=== PATIENT | male | born 1975 | race Caucasian/White ===

== ENCOUNTER 2017-11-18 07:06 | Emergency (ER) | payer SELFPAY ==
[~2017-11-18] VITALS: Ht 185.4 cm; Wt 147.4 kg
--- OUTSIDE RECORDS SUMMARY | 2017-11-18 07:12 | XMS REPORT ---
Author Author JOAO HENRY [facility] Address [address] [place] [address] Care Team Providers Care Hand Hide Stretcher Name Role Phone JOAO HENRY Unavailable PROBLEMS Type Condition ICD9-CM Code [id number] Code Onset Dates Condition Status SNOMED Code Problem Allergic rhinitis, unspecified J30.9 Active 99009850 Problem Hypertension I10 Active 72001375 Problem Hyperlipidemia, unspecified hyperlipidemia type E78.5 Active 72484945 Problem Varicose veins I86.8 Active 860073096 Problem Plantar fasciitis M72.2 Active 441925778 ALLERGIES No Known Allergies SOCIAL HISTORY Never Assessed PLAN OF CARE Activity Details Follow Up 6 Months Reason:BP VITAL SIGNS Height 73 in 2017-02-06 Weight 297.1 lbs 2017-02-06 Temperature 98.4 degrees Fahrenheit 2017-02-06 Heart Rate 84 bpm 2017-02-06 Respiratory Rate 18 2017-02-06 BMI 39.19 kg/m2 2017-02-06 Blood pressure systolic 118 mmHg 2017-02-06 Blood pressure diastolic 84 mmHg 2017-02-06 MEDICATIONS Medication Instructions Dosage Frequency Start Date End Date Duration Status Loratadine 10 MG Orally Once a day 1 tablet 24h Active Fluticasone Propionate 50 MCG/ACT Nasally Twice a day 1 spray in each nostril 12h Nov, 30 day(s) Active Multivitamin Adult - Active Baby Aspirin 81 MG Orally Once a day 1 tablet 24h Oct, Active Guaifenesin 400 mg Orally 2 times a day 1 tablet as needed 12h Jan, Active Glucosamine 500 MG Orally Once a day 1 capsule with a meal 24h Active Accupril 20 MG Orally Once a day 1 tablet 24h Jul, 30 days Active RESULTS No Results PROCEDURES Procedure Date Ordered Result Body Site COMPREHEN METABOLIC PANEL February 06, 2017 LIPID PANEL February 06, 2017 VENIPUNCT, ROUTINE* February 06, 2017 IMMUNIZATIONS No Known Immunizations MEDICAL (GENERAL) HISTORY Type Description Date Medical History hypertension Medical History hyperlipidemia Medical History asthma Surgical History wisdom teeth at age 19yrs
--- OUTSIDE RECORDS SUMMARY | 2017-11-18 07:12 | XMS REPORT ---
Author JOAO Osborne Organization [employer] Address Unknown Phone Unavailable Care Team Providers Care Art Director Name Role Phone JOAO HENRY CP Unavailable Allergies No Known Allergies Problems Problem Type Condition Code Onset Dates Condition Status Problem Hyperlipidemia, unspecified hyperlipidemia type E78.5 Active Problem Varicose veins I86.8 Active Problem Hypertension I10 Active Problem Plantar fasciitis M72.2 Active Medications No Known Medications Results No Known Results Summary Purpose [employer] Submission
--- OUTSIDE RECORDS SUMMARY | 2017-11-18 07:12 | XMS REPORT ---
Author Author JOAO HENRY Organization [employer] Address Unknown Phone Unavailable Care Team Providers Care Health And Safety Representative Name Role Phone JOAO HENRY CP Unavailable Allergies No Known Allergies Problems Problem Type Condition Code Onset Dates Condition Status Problem Hyperlipidemia, unspecified hyperlipidemia type E78.5 Active Problem Varicose veins I86.8 Active Problem Hypertension I10 Active Problem Plantar fasciitis M72.2 Active Assessment Hyperlipidemia, unspecified hyperlipidemia type E78.5 Active Medications No Known Medications Results No Known Results Summary Purpose [employer] Submission
--- OUTSIDE RECORDS SUMMARY | 2017-11-18 07:12 | XMS REPORT ---
Author Author JOAO HENRY Organization [employer] Address Unknown Phone Unavailable Care Team Providers Care Saw Offbearer Name Role Phone JOAO HENRY CP Unavailable Allergies No Known Allergies Problems Problem Type Condition Code Onset Dates Condition Status Problem Other and unspecified hyperlipidemia 272.4 Active Problem Essential hypertension, benign 401.1 Active Problem Allergic rhinitis, cause unspecified 477.9 Active Medications Medication Code System Code Instructions Start Date End Date Status Dosage Accupril [facility] [address]-48 20 MG Once a day PT NEEDS AN APPT FOR FURTHER REFILLS Jul 29, 2014 1 tablet by Oral route 1 time per day Results No Known Results Summary Purpose [employer] Submission
--- OUTSIDE RECORDS SUMMARY | 2017-11-18 07:12 | XMS REPORT ---
Author Author SUHA MARR[facility]QUIN [facility] Address [address] [place] [address] Care Team Providers Care Senior Qa Engineer Name Role Phone SUHA MARROQUIN Unavailable PROBLEMS Type Condition ICD9-CM Code [id number] Code Onset Dates Condition Status SNOMED Code Problem Allergic rhinitis, unspecified J30.9 Active 38728572 Problem Hypertension I10 Active 85837740 Problem Hyperlipidemia, unspecified hyperlipidemia type E78.5 Active 46103272 Problem Varicose veins I86.8 Active 490565896 Problem Plantar fasciitis M72.2 Active 603088536 ALLERGIES No Known Allergies SOCIAL HISTORY Never Assessed PLAN OF CARE Activity Details Follow Up prn Reason: VITAL SIGNS Height 73 in 2016-11-30 Weight 292.6 lbs 2016-11-30 Temperature 97.8 degrees Fahrenheit 2016-11-30 Heart Rate 68 bpm 2016-11-30 Respiratory Rate 20 2016-11-30 BMI 38.60 kg/m2 2016-11-30 Blood pressure systolic 126 mmHg 2016-11-30 Blood pressure diastolic 80 mmHg 2016-11-30 MEDICATIONS Medication Instructions Dosage Frequency Start Date End Date Duration Status Loratadine 10 MG Orally Once a day 1 tablet 24h Active Benzonatate 100 MG Orally Three times a day 1 capsule as needed 8h Nov, Nov, 5 days Active Accupril 20 MG 1 tablet by Oral route 1 time per day 24h Jul, Active Baby Aspirin 81 MG Orally Once a day 1 tablet 24h Oct, Active Fluticasone Propionate 50 MCG/ACT Nasally Twice a day 1 spray in each nostril 12h Nov, 30 day(s) Active Augmentin 875-125 MG Orally every 12 hrs 1 tablet 12h Nov,Nov 10 day(s) Active RESULTS No Results PROCEDURES Procedure Date Ordered Result Body Site DEPO MEDROL 80 MG/ML Nov 30, 2016 THER/PROPH/DIAG INJ, SC/IM Nov 30, 2016 DEXAMETHASONE 4MG/ML (PER 1 MG) Nov 30, 2016 IMMUNIZATIONS Vaccine Route Administration Date Status DEXAMETHASONE 4MG/ML (PER 1 MG) IM Intramuscular Nov 30, 2016 Administered DEPO MEDROL 80 MG/ML IM Intramuscular Nov 30, 2016 Administered MEDICAL (GENERAL) HISTORY Type Description Date Medical History hypertension Medical History hyperlipidemia Medical History asthma Surgical History wisdom teeth at age 19yrs
--- OUTSIDE RECORDS SUMMARY | 2017-11-18 07:13 | XMS REPORT | Continuity of Care Document ---
Author Author [facility] Address Unknown Phone Unavailable Allergies Active Description Code Type Severity Reaction Onset Reported/Identified Relationship to Patient Clinical Status Yes No Known Drug Allergies [id number] Drug Allergy Mild N/A 07/11/2009 Medications There is no data. Problems Date Dx Coded Attending Type Code Diagnosis Diagnosed By 12/27/2009 CARL GARAY JOAO S 461.1 Acute Frontal Sinusitis 12/27/2009 CARL WELL REACTIVATOR OPERATOR JOAO S 786.2 Cough 12/27/2009 461.1 Acute Frontal Sinusitis 12/27/2009 786.2 Cough 12/27/2009 CARL WELL REACTIVATOR OPERATOR, JOAO S 461.1 Acute Frontal Sinusitis 12/27/2009 CARL WELL REACTIVATOR OPERATOR, JOAO S 786.2 Cough 12/27/2009 WHITE DDS, KERRI D 461.1 Acute Frontal Sinusitis 12/27/2009 WHITE DDS, KERRI D 786.2 Cough 12/27/2009 CARL WELL REACTIVATOR OPERATOR, JOAO S 461.1 Acute Frontal Sinusitis 12/27/2009 CARL WELL REACTIVATOR OPERATOR, JOAO S 786.2 Cough 12/27/2009 MIGUEL DIAZ MD 461.1 Acute Frontal Sinusitis 12/27/2009 MIGUEL DIAZ MD 786.2 Cough 12/27/2009 CARL GARAY, JOAO S 461.1 Acute Frontal Sinusitis 12/27/2009 ACRL GARAY, JOAO S 786.2 Cough 12/27/2009 MIGUEL DIAZ MD 461.1 Acute Frontal Sinusitis 12/27/2009 MIGUEL DIAZ MD 786.2 Cough 10/12/2010 CARL GARAY, JOAO S 461.9 Sinusitis Acute 10/12/2010 CARL GARAY, JOAO S 462 Pharyngitis Acute 10/12/2010 461.9 Sinusitis Acute 10/12/2010 462 Pharyngitis Acute 10/12/2010 CARL WELL REACTIVATOR OPERATOR, JOAO S 461.9 Sinusitis Acute 10/12/2010 CARL WELL REACTIVATOR OPERATOR, JOAO S 462 Pharyngitis Acute 10/12/2010 WHITE DDS, KERRI D 461.9 Sinusitis Acute 10/12/2010 WHITE DDS, KERRI D 462 Pharyngitis Acute 10/12/2010 CARL WELL REACTIVATOR OPERATOR, JOAO S 461.9 Sinusitis Acute 10/12/2010 CARL WELL REACTIVATOR OPERATOR, JOAO S 462 Pharyngitis Acute 10/12/2010 MIGUEL DIAZ MD 461.9 Sinusitis Acute 10/12/2010 MIGUEL DIAZ MD 462 Pharyngitis Acute 10/12/2010 CARL WELL REACTIVATOR OPERATOR, JOAO S 461.9 Sinusitis Acute 10/12/2010 CARL WELL REACTIVATOR OPERATOR, JOAO S 462 Pharyngitis Acute 10/12/2010 MIGUEL DIAZ MD 461.9 Sinusitis Acute 10/12/2010 MIGUEL DIAZ MD 462 Pharyngitis Acute 07/30/2012 CARL WELL REACTIVATOR OPERATOR, JOAO S 477.9 ALLERGIC RHINITIS CAUSE UNSPECIFIED 07/30/2012 477.9 ALLERGIC RHINITIS CAUSE UNSPECIFIED 07/30/2012 CARL WELL REACTIVATOR OPERATOR, JOAO S 477.9 ALLERGIC RHINITIS CAUSE UNSPECIFIED 07/30/2012 WHITE DDS, KERRI D 477.9 ALLERGIC RHINITIS CAUSE UNSPECIFIED 07/30/2012 CARL GARAY, JOAO S 477.9 ALLERGIC RHINITIS CAUSE UNSPECIFIED 07/30/2012 MIGUEL DIAZ MD 477.9 ALLERGIC RHINITIS CAUSE UNSPECIFIED 07/30/2012 CARL WELL REACTIVATOR OPERATOR, JOAO S 477.9 ALLERGIC RHINITIS CAUSE UNSPECIFIED 07/30/2012 MIGUEL DIAZ MD 477.9 ALLERGIC RHINITIS CAUSE UNSPECIFIED 08/16/2012 CARL WELL REACTIVATOR OPERATOR, JOAO S 401.1 HYPERTENSION, BENIGN ESSENTIAL 08/16/2012 401.1 HYPERTENSION, BENIGN ESSENTIAL 08/16/2012 CARL WELL REACTIVATOR OPERATOR, JOAO S 401.1 HYPERTENSION, BENIGN ESSENTIAL 08/16/2012 WHITE DDS, KERRI D 401.1 HYPERTENSION, BENIGN ESSENTIAL 08/16/2012 CARL WELL REACTIVATOR OPERATOR, JOAO S 401.1 HYPERTENSION, BENIGN ESSENTIAL 08/16/2012 MIGUEL DIAZ MD 401.1 HYPERTENSION, BENIGN ESSENTIAL 08/16/2012 JOAO HENRY APRN S 401.1 HYPERTENSION, BENIGN ESSENTIAL 08/16/2012 MIGUEL DIAZ MD 401.1 HYPERTENSION, BENIGN ESSENTIAL 08/28/2012 JOAO HENRY APRN S NODX NO DIAGNOSIS 08/28/2012 WHITE DDS, KERRI D NODX NO DIAGNOSIS 08/28/2012 JOAO HENRY APRN S NODX NO DIAGNOSIS 08/28/2012 MIGUEL DIAZ MD NODX NO DIAGNOSIS 08/28/2012 JOAO HENRY APRN S NODX NO DIAGNOSIS 08/28/2012 MIGUEL DIAZ MD NODX NO DIAGNOSIS 11/06/2012 JOAO HENRY APRN S 272.4 OTHER AND UNSPECIFIED HYPERLIPIDEMIA 11/06/2012 WHITE DDS, KERRI Poe 272.4 OTHER AND UNSPECIFIED HYPERLIPIDEMIA 11/06/2012 JOAO HENRY APRN S 272.4 OTHER AND UNSPECIFIED HYPERLIPIDEMIA 11/06/2012 MIGUEL DIAZ MD 272.4 OTHER AND UNSPECIFIED HYPERLIPIDEMIA 11/06/2012 JOAO HENRY APRN S 272.4 OTHER AND UNSPECIFIED HYPERLIPIDEMIA 11/06/2012 MIGUEL DIAZ MD 272.4 OTHER AND UNSPECIFIED HYPERLIPIDEMIA 11/03/2013 JOAO HENRY APRN S 465.9 UPPER RESPIRATORY INFECTION 11/03/2013 MIGUEL DIAZ MD 465.9 UPPER RESPIRATORY INFECTION 11/03/2013 JOAO HENRY APRN 465.9 UPPER RESPIRATORY INFECTION 11/03/2013 MIGUEL DIAZ MD 465.9 UPPER RESPIRATORY INFECTION 05/24/2014 MIGUEL DIAZ MD 372.30 CONJUNCTIVITIS UNSPECIFIED 05/24/2014 JOAO HENRY APRN S 372.30 CONJUNCTIVITIS UNSPECIFIED 05/24/2014 MIGUEL DIAZ MD 372.30 CONJUNCTIVITIS UNSPECIFIED 12/07/2014 MIGUEL DIAZ MD 466.0 ACUTE BRONCHITIS Procedures Code Description Performed By Performed On BLOOD PRESSURE CHECK 09/10/2012 98154 ROUTINE VENIPUNCTURE 09/17/2012 43961 CBC 09/17/2012 88457 LIPID PANEL 09/17/2012 31027 CMP 09/17/20124817465 GFR CALC (RESULT ONLY) 09/17/2012 2000F BLOOD PRESSURE CHECK 11/06/2012 22363 ROUTINE VENIPUNCTURE 07/20/2014 96000 LIPID PANEL 07/20/2014 Results There is no data. Encounters ACCT No. Visit Date/Time Discharge Status Pt. Type Provider Facility Loc./Unit Complaint [id number] 12/07/2014 16:49:00 12/07/2014 23:59:59 CLS Outpatient MIGUEL DIAZ MD [id number] 07/20/2014 14:38:00 07/20/2014 23:59:59 CLS Outpatient JOAO HENRY APRN [id number] 05/24/2014 16:41:00 05/24/2014 23:59:59 CLS Outpatient MIGUEL DIAZ MD [id number] 11/03/2013 10:46:00 11/03/2013 23:59:59 CLS Outpatient JOAO HENRY APRN [id number] 08/13/2013 08:04:00 08/13/2013 23:59:59 CLS Outpatient KERRI PALOMO DDS [id number] 11/06/2012 16:25:00 11/06/2012 23:59:59 CLS Outpatient JOAO HENRY APRN [id number] 09/17/2012 07:32:00 09/17/2012 23:59:59 CLS Outpatient [id number] 09/10/2012 16:51:00 09/10/2012 23:59:59 CLS Outpatient JOAO HENRY APRN [id number] 04/07/2015 09:18:00 04/07/2015 23:59:59 CLS Outpatient MICHAEL LIN DO [facility] OCC THORACIC PAIN/STRAIN/ SPRAIN
--- NOTE | 2017-11-18 07:42 | ED Cough/URI ---
General Chief Complaint: Cough/Cold/Flu Symptoms Stated Complaint: COUGH,SINUS DRAINAGE Source: patient Exam Limitations: no limitations History of Present Illness Date Seen by Provider: Nov 18, 2017 Time Seen by Provider: 07:37 Initial Comments This 42-year-old white male presents with a history of cough, sinus drainage, and flulike symptoms. Patient was reevaluated at urgent care in the last few days and placed on steroids. He has a history of asthma. Patient has had a productive cough with green sputum. The patient does not have a nebulizer machine at home. Allergies and Home Medications Allergies Coded Allergies: No Known Drug Allergies (Unverified Allergy, Mild, 07/11/09) Home Medications Atorvastatin Calcium 40 Mg Tablet, (Reported) Fluticasone Propionate 16 Gm Perry.susp, (Reported) Constitutional: fever EENTM: throat pain, No ear pain Respiratory: see HPI, cough, short of breath, wheezing Cardiovascular: No chest pain, No palpitations Gastrointestinal: No abdominal pain, No diarrhea, No vomiting Genitourinary: No dysuria, No frequency Musculoskeletal: No back pain Skin: No rash Psychiatric/Neurological: No Symptoms Reported Hematologic/Lymphatic: No Symptoms Reported Immunological/Allergic: no symptoms reported Past Kxpmytw-Vlqahq-Fgevmy Hx Patient Social History Recent Foreign Travel: No Contact w/Someone Who Travel: No Reviewed Nursing Assessment Reviewed/Agree w Nursing PMH: Yes Physical Exam Vital Signs Vital Sign - Last 12Hours 11/18/17 11/18/17 07:24 08:05 Temp 98.4 Pulse 82 Resp 18 B/P (MAP) 148/87 (107) Pulse Ox 93 O2 Delivery Room Air Capillary Refill : General Appearance: WD/WN, mild distress Eyes: Bilateral Eye Normal Inspection HEENT: normal ENT inspection, TMs normal, pharyngeal erythema Neck: non-tender, full range of motion, supple, normal inspection Respiratory: chest non-tender, wheezing Cardiovascular: regular rate, rhythm, no murmur Gastrointestinal: normal bowel sounds, non tender, soft Extremities: normal range of motion, non-tender, normal inspection Neurologic/Psychiatric: no motor/sensory deficits, alert, normal mood/affect Skin: normal color, warm/dry, No rash Focused Exam Evaluation Lactate Level Laboratory Tests 11/18/17 07:50: Lactic Acid Level 0.78 Lactic Acid Level Laboratory Tests Test 11/18/17 07:50 Lactic Acid Level 0.78 MMOL/L (0.50-2.00) Progress/Results/Core Measures Suspected Sepsis SIRS Temperature: Pulse: Respiratory Rate: Laboratory Tests 11/18/17 07:50: White Blood Count 9.2 Blood Pressure / Mean: Laboratory Tests 11/18/17 07:50: Lactic Acid Level 0.78 Laboratory Tests 11/18/17 07:50: Platelet Count 274 Results/Orders Lab Results Laboratory Tests Test 11/18/17 07:50 Range/Units White Blood Count 9.2 4.3-11.0 10^3/uL Red Blood Count 5.33 4.35-5.85 10^6/uL Hemoglobin 15.3 13.3-17.7 G/DL Hematocrit 44 40-54 % Mean Corpuscular Volume 83 80-99 FL Mean Corpuscular Hemoglobin 29 25-34 PG Mean Corpuscular Hemoglobin Concent 35 32-36 G/DL Red Cell Distribution Width 13.6 10.0-14.5 % Platelet Count 274 130-400 10^3/uL Mean Platelet Volume 9.2 7.4-10.4 FL Neutrophils (%) (Auto) 56 42-75 % Lymphocytes (%) (Auto) 33 12-44 % Monocytes (%) (Auto) 10 0-12 % Eosinophils (%) (Auto) 1 0-10 % Basophils (%) (Auto) 1 0-10 % Neutrophils # (Auto) 5.1 1.8-7.8 X 10^3 Lymphocytes # (Auto) 3.0 1.0-4.0 X 10^3 Monocytes # (Auto) 0.9 0.0-1.0 X 10^3 Eosinophils # (Auto) 0.1 0.0-0.3 10^3/uL Basophils # (Auto) 0.1 0.0-0.1 10^3/uL Lactic Acid Level 0.78 0.50-2.00 MMOL/L Group A Streptococcus Screen NEGATIVE NEGATIVE Micro Results Microbiology 11/18/17 Influenza Types A,B Antigen (ANNALISE) - Final, Complete My Orders Orders - JOB GROSSMAN MD Chest Pa/Lat (2 View) (11/18/17 07:35) Cbc With Automated Diff (11/18/17 07:35) Influenza A And B Antigens (11/18/17 07:35) Blood Culture (11/18/17 07:43) Rapid Strep A Screen (11/18/17 07:43) Lactic Acid Analyzer (11/18/17 07:43) Albuterol/Ipra Inhalation Soln (Duoneb I (11/18/17 08:01) Methylprednisolone Sod Succ (Solu-Medrol (11/18/17 08:30) Medications Given in ED Current Medications Medications Dose Ordered Sig/Ulysses Route Start Time Stop Time Status Last Admin Dose Admin Albuterol/ Ipratropium 3 ml STK-MED ONCE .ROUTE 11/18/17 08:01 11/18/17 08:04 DC 11/18/17 08:05 3 ML Methylprednisolone Sodium Succinate 125 mg ONCE ONCE IVP 11/18/17 08:30 11/18/17 08:31 DC 11/18/17 08:38 125 MG Vital Signs/I&O Vital Sign - Last 12Hours 11/18/17 11/18/17 07:24 08:05 Temp 98.4 Pulse 82 Resp 18 B/P (MAP) 148/87 (107) Pulse Ox 93 92 O2 Delivery Room Air Capillary Refill : Progress Note : Time: 09:02 Progress Note The patient's chest x-ray films reveal evidence of an infiltrate. The patient' s CBC demonstrated normal white count. Patient was symptomatically improved following a DuoNeb nebulized treatment. Discussion of the patient's findings were undertaken with the patient and family. Arrangements were made for a nebulizer at home for further use of Melanie propria bromide and albuterol. The patient was given Solu-Medrol 125 mg IV in the emergency department and placed on a five-day course of prednisone 50 mg daily. Because he had had symptoms for a week without improvement he was started on a course of Zithromax as well. In addition for symptomatic relief the patient was given Tussionex to be used at night for persistent cough. Departure Impression Impression: Primary Impression: Asthmatic bronchitis Qualified Codes: J45.50 - Severe persistent asthma, uncomplicated Disposition: 01 HOME, SELF-CARE Condition: Improved Departure-Patient Inst. Decision time for Depature: 09:06 Referrals: [facility] (PCP/Family) Primary Care Physician Patient Instructions: Acute Bronchitis, Adult (DC) Add. Discharge Instructions: DuoNeb nebulized treatments at home. Prednisone, Tussionex, and Zithromax as prescribed. Close follow-up with community health. Return if any problems or questions. All discharge instructions reviewed with patient and/or family. Voiced understanding. JOB GROSSMAN MD Nov 18, 2017 07:42
[2017-11-18] MEDS ORDERED: ATOR40TA70 (07:43)
[2017-11-18] MEDS ORDERED: FLUT16SP22 (07:43)
[2017-11-18] MEDS ORDERED: RT-ALBUTEROL/IPRATROPIUM 3 ML (DUONEB) VIAL ONE (08:01)
[2017-11-18 08:02] LABS: BASOPHILS # (AUTO) 0.1 10^3/uL (0.0-0.1); BASOPHILS % (AUTO) 1 % (0-10); EOSINOPHILS # (AUTO) 0.1 10^3/uL (0.0-0.3); EOSINOPHILS % (AUTO) 1 % (0-10); HEMATOCRIT 44 % (40-54); HEMOGLOBIN 15.3 G/DL (13.3-17.7); LYMPHOCYTES % (AUTO) 33 % (12-44); MEAN CORPUSCULAR HEMOGLOBIN 29 PG (25-34); MEAN CORPUSCULAR HGB CONC 35 G/DL (32-36); MEAN CORPUSCULAR VOLUME 83 FL (80-99); MEAN PLATELET VOLUME 9.2 FL (7.4-10.4); MONOCYTES # (AUTO) 0.9 X 10^3 (0.0-1.0); MONOCYTES % (AUTO) 10 % (0-12); NEUTROPHILS # (AUTO) 5.1 X 10^3 (1.8-7.8); NEUTROPHILS % (AUTO) 56 % (42-75); PLATELET COUNT 274 10^3/uL (130-400); RED BLOOD COUNT 5.33 10^6/uL (4.35-5.85); RED CELL DISTRIBUTION WIDTH 13.6 % (10.0-14.5); WHITE BLOOD COUNT 9.2 10^3/uL (4.3-11.0)
--- NOTE | 2017-11-18 08:25 | Diagnostic Imaging Report ---
INDICATION: Cough. Time of exam: 8:37 AM No prior studies are available for comparison. FINDINGS: The heart size is normal. The lungs are clear. No pleural effusion or pneumothorax is identified. The pulmonary vascularity is normal. IMPRESSION: No acute abnormality detected. Dictated by: Dictated on workstation # [id number]
[2017-11-18] MEDS ORDERED: methylPREDNISolone 125 MG (Solu-MEDROL) VIAL IVP ONE (08:30)
[2017-11-18 09:18] VITALS: BP 134/88
== END 2017-11-18 09:18 | disposition home or self-care (01) ==
LOC: EDUNIT# 07:06 → ER 07:09
DX: J45.998 Other asthma (principal)
CPT/HCPCS: 36415; 71046; 83605; 85025; 87040; 87430; 87804; 94640; 96374; 99284